=== PATIENT | female | born 2005 | race Two or more races ===

== ENCOUNTER → 2024-06-06 | Outpatient (REF) | payer MEDICARE | LOC: M LAB REF 16:03 | PROVIDERS: ATTEND Physician Assistant | DX: J02.9 Acute pharyngitis, unspecified (principal) ==

== ENCOUNTER → 2024-07-20 | Outpatient (REF) | payer MEDICARE ==
[2024-07-20 21:55] LABS: APPEARANCE, URINE CLEAR (CLEAR); BACTERIA, URINE AUTO NEGATIVE (NEGATIVE); BILIRUBIN, URINE AUTO NEGATIVE (NEGATIVE); BLOOD, URINE BLOOD NEGATIVE (NEGATIVE); COLOR, URINE STRAW (YELLOW); GLUCOSE, URINE (UA) AUTO NEGATIVE (NEGATIVE); KETONE, URINE AUTO NEGATIVE (NEGATIVE); LEUKOCYTE ESTERASE, URINE AUTO NEGATIVE (NEGATIVE); NITRITE, URINE AUTO NEGATIVE (NEGATIVE); PROTEIN, URINE AUTO NEGATIVE (NEGATIVE); RBC, URINE AUTO 0 /HPF (0-3); SPECIFIC GRAVITY URINE AUTO 1.005 (1.002-1.035); SQUAMOUS EPITHELIAL CELL UR AU 0 /HPF (0-6); UROBILINOGEN, URINE AUTO 0.2 mg/dL (0.0-2.0); WBC, URINE AUTO 0 /HPF (0-3)
== END ==
LOC: M LAB REF 21:17
PROVIDERS: ATTEND Physician Assistant Medical
DX: N39.0 Urinary tract infection, site not specified (principal)

== ENCOUNTER → 2024-08-10 | Outpatient (REF) | payer MEDICARE | LOC: M SFHCWAGY 14:52 | PROVIDERS: ATTEND Nurse Practitioner Family | DX: R30.0 Dysuria (principal) ==

== ENCOUNTER → 2024-08-11 | Outpatient (REF) | payer MEDICARE | LOC: M SFHCCLAY 13:45 | PROVIDERS: ATTEND Physician Assistant Medical | DX: Z12.4 Encounter for screening for malignant neoplasm of cervix (principal); R87.618 Other abnormal cytological findings on specimens from cervix uteri; R87.615 Unsatisfactory cytologic smear of cervix ==

== ENCOUNTER → 2024-08-11 | Outpatient (REF) | payer MEDICARE | LOC: M SFHCPLAZ 15:03 | PROVIDERS: ATTEND Physician Assistant Medical | DX: Z01.419 Encounter for gynecological examination (general) (routine) without abnormal findings (principal); N76.0 Acute vaginitis ==

== ENCOUNTER → 2024-08-11 | Outpatient (CLI) | payer MEDICARE | LOC: M RAD 13:01 | PROVIDERS: ATTEND Physician Assistant Medical | DX: Z01.419 Encounter for gynecological examination (general) (routine) without abnormal findings (principal); N85.8 Other specified noninflammatory disorders of uterus; R10.2 Pelvic and perineal pain; N76.0 Acute vaginitis | CPT/HCPCS: 76830; 76856; 87070; 93976; G0463 ==

== ENCOUNTER → 2024-08-18 | Outpatient (REF) | payer MEDICARE | LOC: M SFHCWAGY 17:29 | PROVIDERS: ATTEND Nurse Practitioner Family | DX: R87.612 Low grade squamous intraepithelial lesion on cytologic smear of cervix (LGSIL) (principal) ==

== ENCOUNTER 2024-09-22 11:12 | Outpatient (RCR) | payer OTHER | END 2024-10-08 | LOC: M PT 11:12 | PROVIDERS: ATTEND Physician Assistant Medical | DX: R10.2 Pelvic and perineal pain (principal) ==

== ENCOUNTER → 2024-09-26 | Outpatient (CLI) | payer OTHER | LOC: M PLALAB 10:51 | PROVIDERS: ATTEND Advanced Practice Midwife | DX: Z87.59 Personal history of other complications of pregnancy, childbirth and the puerperium (principal) ==

== ENCOUNTER → 2024-09-28 | Outpatient (CLI) | payer OTHER | LOC: M PLALAB 10:57 | PROVIDERS: ATTEND Advanced Practice Midwife | DX: Z87.59 Personal history of other complications of pregnancy, childbirth and the puerperium (principal) ==

== ENCOUNTER → 2024-10-03 | Outpatient (REF) | payer OTHER ==
[2024-10-03 11:20] LABS: HCG, SERUM QUANTITATIVE 252.1 MIU/ML (<4.2)
[2024-10-03 11:24] LABS: ALBUMIN 3.8 G/DL (3.2-5.2); ALKALINE PHOSPHATASE 57 U/L (35-104); ALT/SGPT 22 U/L (7.0-40); AST/SGOT < 8 U/L (<34); BILIRUBIN,TOTAL 0.5 MG/DL (0.3-1.2); BLOOD UREA NITROGEN 11 MG/DL (9-23); CALCIUM LEVEL 9.4 MG/DL (8.5-10.1); CARBON DIOXIDE LEVEL 24 MMOL/L (20-31); CHLORIDE LEVEL 108 MMOL/L (98-107); CREATININE FOR GFR 0.79 MG/DL (0.55-1.30); GLOMERULAR FILTRATION RATE > 60.0 (>60); GLUCOSE, FASTING 88 MG/DL (60-100); POTASSIUM SERUM 4.1 MMOL/L (3.5-5.1); SODIUM LEVEL 139 MMOL/L (136-145); TOTAL PROTEIN 7.3 G/DL (5.7-8.2)
[2024-10-03 11:25] LABS: PROGESTERONE 9.74 NG/ML
== END ==
LOC: M SFHCPLAZ 10:10
PROVIDERS: ATTEND Advanced Practice Midwife
DX: O02.81 Inappropriate change in quantitative human chorionic gonadotropin (hCG) in early pregnancy (principal)

== ENCOUNTER → 2024-10-04 | Outpatient (CLI) | payer OTHER | LOC: M RAD 12:59 | PROVIDERS: ATTEND Advanced Practice Midwife | DX: O02.81 Inappropriate change in quantitative human chorionic gonadotropin (hCG) in early pregnancy (principal) ==

== ENCOUNTER → 2024-10-05 | Outpatient (CLI) | payer OTHER | LOC: M PLALAB 09:08 | PROVIDERS: ATTEND Advanced Practice Midwife | DX: O02.81 Inappropriate change in quantitative human chorionic gonadotropin (hCG) in early pregnancy (principal); Z3A.00 Weeks of gestation of pregnancy not specified ==

== ENCOUNTER → 2024-10-10 | Outpatient (CLI) | payer OTHER | LOC: M PLALAB 12:25 | PROVIDERS: ATTEND Obstetrics & Gynecology | DX: Z34.90 Encounter for supervision of normal pregnancy, unspecified, unspecified trimester (principal) ==

== ENCOUNTER → 2024-10-14 | Outpatient (CLI) | payer OTHER | LOC: M PLALAB 11:34 | PROVIDERS: ATTEND Obstetrics & Gynecology | DX: O02.81 Inappropriate change in quantitative human chorionic gonadotropin (hCG) in early pregnancy (principal) ==

== ENCOUNTER → 2024-10-18 | Outpatient (CLI) | payer OTHER | LOC: M PLALAB 10:41 | PROVIDERS: ATTEND Obstetrics & Gynecology | DX: O02.81 Inappropriate change in quantitative human chorionic gonadotropin (hCG) in early pregnancy (principal) ==